=== PATIENT | female | born 1995 | race Caucasian/White ===

== ENCOUNTER 2017-03-16 01:38 | Emergency (ER) | payer OTHER ==
[2017-03-16 03:07] LABS: PLATELET COUNT 359 x10^3mcL (130-400); RED CELL DISTRIBUTION WIDTH 12.6 % (11.5-14.5)
[2017-03-16 03:13] LABS: CALCIUM 8.8 mg/dL (8.5-10.1); CARBON DIOXIDE 25.7 mmol/L (21-32); CHLORIDE SERUM 103 mmol/L (98-107); CREATININE SERUM 0.7 mg/dL (0.6-1.0); GFR1 > 60 mL/min; GLUCOSE SERUM 95 mg/dL (74-106); POTASSIUM SERUM 3.7 mmol/L (3.5-5.1); SODIUM SERUM 137 mmol/L (136-145)
[2017-03-16 03:17] LABS: ALBUMIN 3.9 g/dL (3.4-5.0); ALKALINE PHOSPHATASE 81 U/L (46-116); ALT/SGPT 30 U/L (14-59); AMYLASE 65 U/L (25-115); AST/SGOT 20 U/L (15-37); BILIRUBIN TOTAL 0.22 mg/dL (0.20-1.00); LIPASE 143 IU/L (73-393); TOTAL PROTEIN, SERUM 7.7 g/dL (6.4-8.2)
[2017-03-16 03:26] LABS: microscopic required? YES; urine erythrocyte NEGATIVE (NEGATIVE)
[2017-03-16 05:12] VITALS: BP 104/60
== END 2017-03-16 05:12 | disposition home or self-care (01) ==
LOC: ED 01:38
PROVIDERS: Emergency Medicine
DX: R10.12 Left upper quadrant pain (principal); F41.9 Anxiety disorder, unspecified
CPT/HCPCS: J2270; Q0162

== ENCOUNTER 2017-10-13 17:20 | Emergency (ER) | payer OTHER ==
[2017-10-13 17:27] VITALS: BP 112/73
== END 2017-10-13 18:33 | disposition home or self-care (01) ==
LOC: ED 17:20
DX: B86 Scabies (principal)

== ENCOUNTER 2018-08-16 17:48 | Emergency (ER) | payer SELFPAY ==
[2018-08-16 18:01] VITALS: Ht 149.9 cm
[2018-08-16 20:53] VITALS: BP 124/78
== END 2018-08-16 20:53 | disposition home or self-care (01) ==
LOC: ED 17:48
DX: L92.3 Foreign body granuloma of the skin and subcutaneous tissue (principal); F41.9 Anxiety disorder, unspecified
CPT/HCPCS: 90715; J2001

== ENCOUNTER 2018-08-22 15:28 | Emergency (ER) | payer SELFPAY ==
[~2018-08-22] VITALS: Ht 149.9 cm; Wt 58.1 kg
[2018-08-22 15:45] VITALS: Ht 149.9 cm; Wt 58.1 kg
[2018-08-22 17:08] VITALS: BP 109/73
== END 2018-08-22 17:08 | disposition home or self-care (01) ==
LOC: ED 15:28
DX: S01.81XD Laceration without foreign body of other part of head, subsequent encounter (principal); X58.XXXD Exposure to other specified factors, subsequent encounter